=== PATIENT | male | born 1980 | race Caucasian/White ===

== ENCOUNTER 2023-12-09 22:03 | Emergency (ER) | payer BC ==
[2023-12-09 22:22] VITALS: RESP 18
[2023-12-09] MEDS: LIDOCAINE 1% INJ 10MG/ML (20 ML MDV) SQ ONE (22:37)
[2023-12-09] MEDS: DIPH,PERTUS(ACELL)TETVAC-LF 0.5 ML VIAL IM ONE (22:37)
--- NOTE | 2023-12-09 23:07 | ED ---
Animal Bite HPI - General Chief Complaint: Animal Bite Stated Complaint: Bite by Dog-Facial Laceration Time Seen by Provider: 12/09/23 22:09 Source: patient Mode of arrival: ambulatory Limitations: no limitations - History of Present Illness Initial Comments: 43-year-old male presenting with chief complaint of dog bite to the face. Patient was bitten by his dog on the right cheek and the left portion of the nose. His tetanus is not up-to-date. He has no other injuries. He has 3 small lacerations to the right cheek and one small laceration to the left side of the nose. No injury to the eye. No pain or difficulty with extraocular motions. No headache, neck pain, or loss of consciousness. - Related Data Previous Rx's Medication Instructions Recorded Clindamycin [Cleocin] 300 mg PO Q6H 7 Days #42 cap 12/09/23 Sulfamethox-Tmp 800-160Mg [Bactrim 1 tab PO Q12HR 7 Days #14 tab 12/09/23 DS 800-160 mg] Allergies Allergy/AdvReac Type Severity Reaction Status Date / Time Penicillins Allergy Rash/Hives Verified 12/09/23 22:07 Review of Systems ROS Statement: Those systems with pertinent positive or pertinent negative responses have been documented in the HPI. ROS Other: All systems not noted in ROS Statement are negative. Past Medical History Past Medical History: No Reported History History of Any Multi-Drug Resistant Organisms: None Reported Past Surgical History: No Surgical Hx Reported Past Psychological History: No Psychological Hx Reported Smoking Status: Never smoker Past Alcohol Use History: Occasional Past Drug Use History: None Reported General Exam Limitations: no limitations General appearance: alert, in no apparent distress Expanded Head exam: Present: laceration (3 small lacerations right cheek, one to the L side of nose) Eye exam: Present: normal appearance, EOMI Neck exam: Present: normal inspection Respiratory exam: Absent: respiratory distress Cardiovascular Exam: Present: regular rate Neurological exam: Present: alert, oriented X3 Psychiatric exam: Present: normal affect, normal mood Expanded Type of lesion: Present: laceration Course Vital Signs 12/09/23 12/09/23 22:05 23:20 Temperature 97.5 F L 98.0 F Pulse Rate 79 80 Respiratory 18 18 Rate Blood Pressure 140/85 144/92 O2 Sat by Pulse 98 97 Oximetry Procedures - Laceration Laceration #1 Consent Obtained: verbal consent Indication: laceration Site: face Size (cm): 1 Description: linear Depth: simple, single layer Anesthetic Used: lidocaine 1%, without epi Anesthesia Technique: local infiltration Type of Sutures: nylon Size of Sutures: 4-0 Number of Sutures: 1 Technique: simple, interrupted Patient Tolerated Procedure: well Laceration #2 Consent Obtained: verbal consent Indication: laceration Site: face Size (cm): 1 Description: flap Depth: simple, single layer Anesthetic Used: lidocaine 1%, without epi Anesthesia Technique: local infiltration Type of Sutures: nylon Size of Sutures: 4-0 Number of Sutures: 2 Technique: simple, interrupted Patient Tolerated Procedure: well Medical Decision Making - Medical Decision Making Was pt. sent in by a medical professional or institution ([facility], [facility], urgent care, hospital, or snf...) When possible be specific @ -No Did you speak to anyone other than the patient for history (EMS, parent, family, police, friend...)? What history was obtained from this source @ -No Did you review nursing and triage notes (agree or disagree)? Why? @ -I reviewed and agree with nursing and triage notes Were old charts reviewed (outside hosp., previous admission, EMS record, old EKG, old radiological studies, urgent care reports/EKG's, snf records)? Report findings @ -No old charts were reviewed Differential Diagnosis (chest pain, altered mental status, abdominal pain women, abdominal pain men, vaginal bleeding, weakness, fever, dyspnea, syncope, headache, dizziness, GI bleed, back pain, seizure, CVA, palpatations, mental health, musculoskeletal)? @ -Not applicable EKG interpreted by me (3pts min.). @ -As above X-rays interpreted by me (1pt min.). @ -None done CT interpreted by me (1pt min.). @ -None done U/S interpreted by me (1pt. min.). @ -None done What testing was considered but not performed or refused? (CT, X-rays, U/S, labs)? Why? @ -None What meds were considered but not given or refused? Why? @ -None Did you discuss the management of the patient with other professionals (professionals i.e. [facility], [facility] [employer], lab, RT, psych nurse, social work manager, election watcher, teacher, diplomatic officer, pillowcase sewer)? Give summary @ -No Was smoking cessation discussed for >3mins.? @ -No Was critical care preformed (if so, how long)? @ -No Were there social determinants of health that impacted care today? How? (Homelessness, low income, unemployed, alcoholism, drug addiction, transportation, low edu. Level, literacy, decrease access to med. care, assisted, rehab)? @ -No Was there de-escalation of care discussed even if they declined (Discuss DNR or withdrawal of care, Hospice)? DNR status @ -No What co-morbidities impacted this encounter? (DM, HTN, Smoking, COPD, CAD, Cancer, CVA, ARF, Chemo, Hep., AIDS, mental health diagnosis, sleep apnea, morbid obesity)? @ -None Was patient admitted / discharged? Hospital course, mention meds given and route, prescriptions, significant lab abnormalities, going to OR and other pertinent info. @ -43-year-old male presenting chief complaint of dog bite to the face. This was his own dog. His tetanus is updated today. Lacerations are cleansed. Repaired as needed for 2 of the 3 small lacerations to the right cheek. The small laceration to the left side of the nose requires no repair. He is started on Bactrim and clindamycin due to penicillin allergy. Educated on wound care and signs of infection. Discharged home. Follow-up with PCP. Report back to ER with any new or worsening symptoms. Discussed return parameters and answered all questions. Patient conveyed verbal understanding and agreed to the plan. I discussed this case in detail with my attending Dr. Dooley Undiagnosed new problem with uncertain prognosis? @ -No Drug Therapy requiring intensive monitoring for toxicity (Heparin, Nitro, Insulin, Cardizem)? @ -No Were any procedures done? @ -Laceration repair Diagnosis/symptom? @ -dog bite Laceration Acute, or Chronic, or Acute on Chronic? @ -Acute Uncomplicated (without systemic symptoms) or Complicated (systemic symptoms)? @ -Uncomplicated Side effects of treatment? @ -No Exacerbation, Progression, or Severe Exacerbation? @ -No Poses a threat to life or bodily function? How? (Chest pain, [place], [place], pneumonia, PE, COPD, DKA, ARF, appy, cholecystitis, CVA, Diverticulitis, Homicidal, Suicidal, threat to staff... and all critical care pts) @ -Low likelihood Disposition Clinical Impression: Dog bite Disposition: HOME SELF-CARE Condition: Good Instructions (If sedation given, give patient instructions): Animal Bite (ED) Additional Instructions: Follow-up with PCP. Report back to ER with any new or worsening symptoms. Keep the wound clean dry and covered. Wash regularly with soap and water. Avoid fully submerging the wound in water for prolonged periods of time. Monitor for signs of infection, including but not limited to redness, swelling, warmth, tenderness, discharge, fever. Sutures may be removed in 3-5 days Prescriptions: Sulfamethox-Tmp 800-160Mg [Bactrim DS 800-160 mg] 1 tab PO Q12HR 7 Days #14 tab Clindamycin [Cleocin] 300 mg PO Q6H 7 Days #42 cap Is patient prescribed a controlled substance at d/c from ED?: No Referrals: Satnam Brown DO [Primary Care Provider] - 1-2 days Time of Disposition: 23:07
[2023-12-09 23:39] VITALS: BP 144/92; PULSE 80; TEMP 98
== END 2023-12-09 23:24 | disposition home or self-care (01) ==
LOC: EC 22:03
DX: S01.411A Laceration without foreign body of right cheek and temporomandibular area, initial encounter (principal); S01.21XA Laceration without foreign body of nose, initial encounter; S01.451A Open bite of right cheek and temporomandibular area, initial encounter; Z88.0 Allergy status to penicillin; Z23 Encounter for immunization; W54.0XXA Bitten by dog, initial encounter
CPT/HCPCS: 90715; 99283; 12011; 90471; J2001